=== PATIENT | female | born 1950 | race African-American/Black ===

== ENCOUNTER 2016-08-25 05:45 | Day surgery (SDC) | payer OTHER ==
[~2016-08-25] VITALS: Ht 167.6 cm; Wt 92.5 kg
[~2016-08-25 05:45] MED LIST: B COMPLETE1 EACH PO; CALCITRIOL0.25 MCG PO; CALCIUM + D3 E1 EACH PO; DAILY VALUE1 EACH PO; ENABLEX15 MG PO; HYDRALAZINE HCL25 MG PO; IRON325 MG PO; KENALOG,ARISTOC15 G3 TP; MIRALAX17 GM PO; MYRBETRIQ25 MG PO; NEXIUM40 MG PO; NORVASC10 MG PO; NYSTATIN100000 UN1 PO; NYSTATIN15 GM TP; OMEGA 3 500 SO1 EACH PO; PERCOCET 10/1 TABLET PO; PREMARIN0.625 MG PO; PROVIGIL100 MG PO; TOPROL XL50 MG PO; TROSPIUM CHLORI60 MG PO; VENTOLIN HFA18 GM IH; VITAMIN B12-FO1 EACH PO; ZANAFLEX4 M1 PO; ZANTAC150 MG PO
[2016-08-25 06:38] VITALS: BP 172/83
[2016-08-25 06:44] LABS: HEMATOCRIT 30.6 % (36.0-46.0); MCH 25.6 PG (29.0-34.0); MCV 82.5 FL (83-99); MEAN PLAT.VOLUME 9.9 uM^3 (9.5-12.4); PLATELET COUNT 281 K/uL (156-360); RBC DIS.WIDTH-CV 17.9 % (11.8-14.6); RBC DIS.WIDTH-SD 53.6 % (39-53); RED BLOOD COUNT 3.71 M/uL (3.80-5.20)
[2016-08-25 07:01] LABS: ANION GAP 12 MEQ/L (2-14); CHLORIDE 110 MEQ/L (99-109); POTASSIUM 4.8 MEQ/L (3.7-5.4); SAMPLE HEMOLYSIS CHECK 0; SAMPLE ICTERIC CHECK 0; SAMPLE LIPEMIA CHECK 0; SODIUM 140 MEQ/L (136-147)
[2016-08-25 07:06] LABS: GFR ESTIMATE (CALCULATED) 10 mL/min/; GLUCOSE 93 mg/dL (70-99); UREA NITROGEN (BUN) 63 mg/dL (9-23)
[2016-08-25] MEDS ORDERED: NORCO 5/3251 TABLET PO (10:00)
[2016-08-25 11:02] VITALS: BP 138/70
[2016-08-25 12:02] VITALS: BP 135/61
== END 2016-08-25 12:18 | disposition home or self-care (01) ==
LOC: SDC 05:45
PROVIDERS: Surgery
DX: I12.9 Hypertensive chronic kidney disease with stage 1 through stage 4 chronic kidney disease, or unspecified chronic kidney disease (principal); N18.9 Chronic kidney disease, unspecified; K66.0 Peritoneal adhesions (postprocedural) (postinfection); E66.9 Obesity, unspecified; Z68.33 Body mass index [BMI] 33.0-33.9, adult; Z98.84 Bariatric surgery status; Z90.710 Acquired absence of both cervix and uterus; Z90.722 Acquired absence of ovaries, bilateral; Z96.653 Presence of artificial knee joint, bilateral; M19.90 Unspecified osteoarthritis, unspecified site; Z88.5 Allergy status to narcotic agent; Z88.6 Allergy status to analgesic agent; Z82.5 Family history of asthma and other chronic lower respiratory diseases; Z83.3 Family history of diabetes mellitus; Z82.49 Family history of ischemic heart disease and other diseases of the circulatory system; Z80.9 Family history of malignant neoplasm, unspecified
CPT/HCPCS: 80048; 85027; 93005; C1750; J0330; J0690; J1100; J2405; J3010; S0020

== ENCOUNTER 2016-09-27 14:11 | Day surgery (SDC) | payer OTHER ==
[~2016-09-27] VITALS: Ht 167.6 cm; Wt 92.5 kg
[~2016-09-27 14:11] MED LIST changes: +NABI650T PO; +NORCO 5/3251 TABLET PO; +TRIPHROCAPS SOFT1 MG PO
[2016-09-27 15:10] VITALS: BP 167/82
[2016-09-27 15:16] LABS: HEMATOCRIT 34.8 % (36.0-46.0); MCH 26.1 PG (29.0-34.0); MCHC 30.7 G/DL (30.0-36.0); MCV 84.9 FL (83-99); MEAN PLAT.VOLUME 10.5 uM^3 (9.5-12.4); NRBC (%) 1.8 /100 WBC (0-0); PLATELET COUNT 401 K/uL (156-360); RBC DIS.WIDTH-SD 55.7 % (39-53); WHITE BLOOD COUNT 10.1 K/uL (4.1-10.2)
[2016-09-27 15:24] LABS: CHLORIDE 115 mEq/L (99-109); POTASSIUM 4.9 mEq/L (3.7-5.4); SODIUM 143 mEq/L (136-147)
[2016-09-27 15:26] LABS: GLUCOSE 96 mg/dL (70-99)
[2016-09-27 15:27] LABS: ANION GAP 17 MEQ/L (2-14)
[2016-09-27 15:30] LABS: GFR ESTIMATE (CALCULATED) 6 mL/min/
[2016-09-27 15:31] LABS: UREA NITROGEN (BUN) 77 mg/dL (9-23)
[2016-09-27 19:21] VITALS: BP 136/67
[2016-09-28 09:45] LABS: HBSG INDEX 0.24
== END 2016-09-27 19:55 | disposition home or self-care (01) ==
LOC: SDC 14:11
PROVIDERS: Surgery
PROC: 0JWT33Z Revision of Infusion Device in Trunk Subcutaneous Tissue and Fascia, Percutaneous Approach (ICD-10-PCS; principal; 2016-09-27)
DX: I12.0 Hypertensive chronic kidney disease with stage 5 chronic kidney disease or end stage renal disease (principal); N18.6 End stage renal disease; K21.9 Gastro-esophageal reflux disease without esophagitis; D63.1 Anemia in chronic kidney disease; E78.00 Pure hypercholesterolemia, unspecified; Z87.891 Personal history of nicotine dependence; Z79.899 Other long term (current) drug therapy; Z88.2 Allergy status to sulfonamides; Z83.3 Family history of diabetes mellitus; Z82.49 Family history of ischemic heart disease and other diseases of the circulatory system; Z82.5 Family history of asthma and other chronic lower respiratory diseases
CPT/HCPCS: 80048; 85027; 87340; J0690; J2250; J2405; J3010; S0020

== ENCOUNTER 2016-11-15 13:05 | Day surgery (SDC) | payer OTHER ==
[~2016-11-15] VITALS: Ht 162.6 cm; Wt 90.7 kg
[~2016-11-15 13:05] MED LIST changes: +ELIPHOS667 MG PO; +LASIX80 MG PO
[2016-11-15 13:46] VITALS: BP 164/77
[2016-11-15 14:14] LABS: CHLORIDE 102 mEq/L (99-109); POTASSIUM 3.3 mEq/L (3.7-5.4); SODIUM 145 mEq/L (136-147)
[2016-11-15 14:16] LABS: GLUCOSE 94 mg/dL (70-99)
[2016-11-15 14:17] LABS: ANION GAP 14 MEQ/L (2-14)
[2016-11-15 14:20] LABS: GFR ESTIMATE (CALCULATED) 9 mL/min/
[2016-11-15 14:21] LABS: HEMATOCRIT 32.8 % (36.0-46.0); MCH 24.2 PG (29.0-34.0); MCHC 30.5 G/DL (30.0-36.0); MCV 79.2 FL (83-99); RBC DIS.WIDTH-CV 20.6 % (11.8-14.6); RBC DIS.WIDTH-SD 57.3 % (39-53); RED BLOOD COUNT 4.14 M/uL (3.80-5.20); UREA NITROGEN (BUN) 34 mg/dL (9-23); WHITE BLOOD COUNT 9.8 K/uL (4.1-10.2)
[2016-11-15 15:13] LABS: PLAT.SUFFICIENCY ADEQUATE; PLATELET COUNT 241 K/uL (156-360)
[2016-11-15 16:15] VITALS: BP 134/64
[2016-11-15 17:18] VITALS: BP 131/63
== END 2016-11-15 17:22 | disposition home or self-care (01) ==
LOC: SDC 13:05
PROVIDERS: Surgery
PROC: 05H533Z Insertion of Infusion Device into Right Subclavian Vein, Percutaneous Approach (ICD-10-PCS; principal; 2016-11-15)
PROC: B5161ZA Fluoroscopy of Right Subclavian Vein using Low Osmolar Contrast, Guidance (ICD-10-PCS; principal; 2016-11-15)
DX: I87.8 Other specified disorders of veins (principal); I12.0 Hypertensive chronic kidney disease with stage 5 chronic kidney disease or end stage renal disease; E11.22 Type 2 diabetes mellitus with diabetic chronic kidney disease; N18.6 End stage renal disease; Z99.2 Dependence on renal dialysis; Z96.653 Presence of artificial knee joint, bilateral; Z88.2 Allergy status to sulfonamides; Z82.5 Family history of asthma and other chronic lower respiratory diseases; Z83.3 Family history of diabetes mellitus; Z82.49 Family history of ischemic heart disease and other diseases of the circulatory system
CPT/HCPCS: 71010; 80048; 85027; C1751; J0131; J0690; J2250; J2405; J3010